=== PATIENT | female | born 1945 | race Caucasian/White ===

== ENCOUNTER 2017-02-15 12:08 | Inpatient (IN) | payer OTHER ==
[~2017-02-15] VITALS: Ht 165.1 cm; Wt 65.8 kg
--- NOTE | ~2017-02-15 | EKG ---
[facility] [employer] [place] [address] ELECTROCARDIOGRAM REPORT Name: BHAVYA BRANHAM Room #: 200-I ADM IN M.R.#: [id number] Admission: 02/15/17 Attend Phys: Perico Duran DO Discharge: Date of : 47 Report #: [id number] THIS REPORT FOR: //name// [facility] Test Date: 2017-02-16 Test Time: 10:41:44 Pat Name: BHAVYA BRANHAM Department: Room: 200 I Gender: F Door Closer: Arleen VIGIL : 1945 Requested By: Daron Dugan Order Number: [id number] MD: Terrence Deleon Measurements Intervals [place] Rate: 104 P: 89 VT: 179 QRS: -62 QRSD: 111 T: 117 QT: 365 QTc: 481 Interpretive Statements Sinus tachycardia Ventricular premature complex LAD, consider left anterior fascicular block Probable anterior infarct, age indeterminate Lateral leads are also involved Compared to ECG 08/24/2016 14:34:37 Ventricular premature complex(es) now present Myocardial infarct finding now present Sinus rhythm no longer present Left bundle-branch block no longer present Left ventricular hypertrophy no longer present Q waves no longer present Electronically Signed On 02-16-2017 20:55:15 CDT by Terrence Deleon [email or web address] <ELECTRONICALLY SIGNED> By: Terrence Deleon MD 02/16/172054 40 40 Terrence Deleon MD /EPI
--- NOTE | ~2017-02-15 | CATHLAB ---
[facility] [place] [address] INVASIVE PROCEDURE REPORT Name: BHAVYA BRANHAM Room #: 200-I [facility] IN [facility]#: [id number] Admission: 02/15/17 Attend Phys: Perico Duran, Discharge: 02/17/17 Date of : 47 Date of Service: 02/17/17 0919 Report #: [id number] THIS REPORT FOR: //name// CC: Perico Graham CARDIAC CATHETERIZATION REPORT DATE OF SERVICE: 02/17/2017. INDICATION: Pulmonary hypertension, congestive heart failure. INDICATIONS: Full risks, benefits and alternatives of the right and left heart cardiac catheterization were explained to the patient. All questions were answered. DESCRIPTION OF PROCEDURE: Informed consent was obtained. The right groin area was prepped and draped in a sterile manner. Lidocaine was given subcutaneously. A 4-Jamaican sheath was inserted into the right femoral artery and a 7-Jamaican sheath was inserted into the right femoral vein, both via modified Seldinger technique. A Juma Terry catheter was introduced in the right femoral vein and passed retrograde up into the pulmonary artery. The mean right atrial pressure is . Next, the artery is a 60/12. Next, the mean capillary wedge pressure is 29, the PA pressure is approximately 60/28. The pulmonary artery saturation is approximately 59.6. The systemic arterial saturation is 90.5. A significant left to right shunt is not detected. The cardiac output via the Yadira method is 3.33. CORONARY ANATOMY: The left main artery is a large caliber vessel, with no flow-limiting lesions. The LAD is a moderate sized caliber vessel, travelling down the anterior wall. There are 2 moderate size diagonal arteries. There were no flow-limiting lesions in the LAD. The left circumflex artery is a small caliber vessel, with no flow-limiting lesions. The RCA is a dominant vessel supplying a PDA and several posterolateral branches. There were no flow-limiting lesions in the RCA [facility] [address] [place] [address] INVASIVE PROCEDURE REPORT Name: BHAVYA BRANHAM Room #: 200-I [facility] IN M.R.#: [id number] Admission: 02/15/17 Attend Phys: Perico Duran, Discharge: 02/17/17 Date of : 47 Date of Service: 02/17/17918 Report #: [id number] A left ventriculogram was performed revealing probable mild global LV dysfunction, EF around 45%. The LVEDP is approximately 24 mmHg. There is no gradient across the outflow tract. IMPRESSION: 1. Angiographically normal coronary arteries. 2. Pulmonary hypertension. 3. Mild global left ventricular dysfunction. 4. No evidence for significant left to right shunt. <ELECTRONICALLY SIGNED> By: Daron Dugan MD 02/21/17 0743 0919 1307 MD rahul Youngblood
--- NOTE | ~2017-02-15 | 2DMMODE ---
[facility] [address] [place] [address] 2 D/M-MODE ECHOCARDIOGRAM Name: BHAVYA BRANHAM Room #: 200-I ADM IN .R.#: [id number] Admission: 02/15/17 Attend Phys: Sukumar Pena Discharge: Date of : 47 Date of Service: 02/15/17 1601 Report #: [id number] THIS REPORT FOR: //name// APPROVED REPORT Study performed: 02/15/2017 14:06:21 EXAM: Comprehensive 2D, Doppler, and color-flow Echocardiogram Patient Location: Bedside Room #: 200 Status: routine Other Information Study Quality: Good Indications Elevated Troponin Hx: Afib with ablation and cardioversion. 2D Dimensions RVDd: 43.03 mm LVEF(%): 39.64 (>50%) IVSd: 11.74 (7-11mm) LVOT Diam: 19.93 (18-24mm) LVDd: 42.32 mm PWd: 11.92 (7-11mm) Ascending Ao: 30.67 (22-36mm) LVDs: 34.25 (25-40mm) Aortic Root: 30.48 mm Dan's LVEF: 39.64 % Volumes Left Atrial Volume (Systole) Single Plane 4CH: 84.34 mL Single Plane 2CH: 76.01 mL LA ESV Index: 50.00 mL/m2 Aortic Valve AoV Peak Kirt.: 1.05 m/s AO Peak Gr.: 4.37 mmHg LVOT Max P.16 mmHg LVOT Max V: 0.73 m/s SILVA Vmax: 2.19 cm2 Mitral Valve E/A Ratio: 2.9 MV Decel. Time: 199.94 ms MV E Max Kirt.: 0.83 m/s MV A Kirt.: 0.29 m/s IVRT: 50.75 ms [facility] [place] [address] 2 D/M-MODE ECHOCARDIOGRAM [facility] #: 200-I ADM IN ..#: [id number] Admission: 02/15/17 Attend Phys: Sukumar Pena Discharge: Date of : 47 Date of Service: 02/15/17 1601 Report #: [id number] Pulmonary Valve PV Peak Kirt.: 0.83 m/s PV Peak Gr.: 2.75 mmHg Tricuspid Valve TR Peak Kirt.: 4.16 m/s RAP Estimate: 10.00 mmHg TR Peak Gr.: 69.18 mmHg RVSP: 79.00 mmHg Left Ventricle The left ventricle is normal size. Borderline concentric left ventricular hypertrophy. Left ventricular systolic function is mildly decreased. LVEF is 45-50%. This study is not technically sufficient to allow evaluation of the LV diastolic function. Right Ventricle Right ventricle is mildly dilated. Right ventricle is hypokinetic. Atria Left atrium is severely dilated. A PFO is noted with color doppler. Right atrium is moderately dilated. Aortic Valve Aortic valve leaflets are mildly thickened and calcified. Trace aortic regurgitation. There is no aortic valvular stenosis. Mitral Valve The mitral valve is normal in structure. Moderate mitral regurgitation with an eccentric jet. Tricuspid Valve The tricuspid valve is normal in structure. There is moderate tricuspid regurgitation. The right atrial pressure is estimated at 10 mmHg. There is severe pulmonary hypertension. Estimated PAP is 79mmHg. Pulmonic Valve The pulmonary valve is normal in structure. Mild to moderate pulmonic regurgitation. Great Vessels The aortic root is normal in size. The ascending aorta is normal in size. IVC is dilated and collapses <50% with inspiration. Pericardium [address] [address] 2 D/M-MODE ECHOCARDIOGRAM Name: BHAVYA BRANHAM Room #: 200-I ADM IN .R.#: [id number] Admission: 02/15/17 Attend Phys: Sukumar Pena Discharge: Date of : 47 Date of Service: 02/15/17 1601 Report #: [id number] There is no pericardial effusion. <Conclusion> The left ventricle is normal size. Borderline concentric left ventricular hypertrophy. Right ventricle is mildly dilated. Left atrium is severely dilated. Right atrium is moderately dilated. Aortic valve leaflets are mildly thickened and calcified. Trace aortic regurgitation. The mitral valve is normal in structure. Moderate mitral regurgitation with an eccentric jet. The tricuspid valve is normal in structure. There is moderate tricuspid regurgitation. The right atrial pressure is estimated at 10 mmHg. There is severe pulmonary hypertension. Estimated PAP is 79mmHg. The pulmonary valve is normal in structure. Mild to moderate pulmonic regurgitation. <ELECTRONICALLY SIGNED> By: Teofilo Valle MD 02/15/17 1601 1601 160 Teofilo Valle MD /INF
--- NOTE | ~2017-02-15 | HC ---
[facility] [place] [address] CONSULTATION Name: BHAVYA BRANHAM Room #: 200-I [facility] IN M.R.#: [id number] Admission: 02/15/17 Attend Phys: Perico Duran DO Discharge: 02/17/17 Date of : 47 Report #: [id number] THIS REPORT FOR: //name// CC: Perico Felton REASON FOR CONSULTATION: Shortness of breath and swelling. HISTORY OF PRESENT ILLNESS: The patient is a 72-year-old female who I follow as an outpatient. She has a history of paroxysmal atrial fibrillation and I performed an AFib ablation on her back on 07/15/2016. At that time, all her veins were successfully isolated. Since then, I have stopped her antiarrhythmic drugs and she has had no clinical recurrence of atrial fibrillation based on recent cardiac monitoring. Echo back in December of 2014 showed an EF of 60-65% and a nuclear stress test in August 2015 showed normal EF with no ischemia. She also has history of obstructive sleep apnea, hypothyroidism, and is intolerant of Multaq and flecainide. I recently set her up to see pulmonary because she was having some shortness of breath and cough which they could not figure out. She has seen Dr. Perez who has put her on some inhalers and he described her as having some restrictive findings on her PFTs. Apparently, she reports that she has been having worsening exertional dyspnea for the past several months. She reports that she could not walk from her car to her office without having to stop to catch her breath. She has noted some pounding in her neck sensation as well. She denies any chest pain or chest tightness. She denies any PND or orthopnea. She has had some increased lower extremity swelling over the past couple of weeks. REVIEW OF SYSTEMS: GENERAL: No fevers or chills. HEENT: No blurred vision. CARDIOVASCULAR: As above. PULMONARY: She has this chronic cough and has been evaluated by the pulmonary service as an outpatient. GASTROINTESTINAL: No nausea or vomiting. GENITOURINARY: No dysuria. MUSCULOSKELETAL: No myalgias or arthralgias. ENDOCRINE: No heat or cold intolerance. PAST MEDICAL HISTORY: Please see HPI for my past medical history. FAMILY HISTORY: Noncontributory. SOCIAL HISTORY: No smoking. ALLERGIES: INCLUDE SULFA. HOME MEDICATIONS: Include Xarelto 20, calcium, Protonix, and Synthroid. [facility] [address] [place] [address] CONSULTATION Name: BHAVYA BRANHAM Room #: 200-I [facility] IN ..#: [id number] Admission: 02/15/17 Attend Phys: Perico Duran DO Discharge: 02/17/17 Date of : 47 Report #: [id number] PHYSICAL EXAMINATION: VITAL SIGNS: Temperature is 36.7, pulse 94, respiration 16, blood pressure 118/72, sats are 95%. GENERAL: She is in no acute distress, alert and oriented x 3. HEENT: Oropharynx is clear. Sclerae are anicteric. NECK: Supple with no thyromegaly or carotid bruits. HEART: Regular rate and rhythm with no audible murmurs. She does have elevated JVD with prominent V waves. LUNGS: Clear to auscultation bilaterally. ABDOMEN: Soft, nontender, nondistended with no hepatosplenomegaly. EXTREMITIES: There is no clubbing, cyanosis and she has 1 to 2+ lower extremity edema. NEUROLOGICAL: Cranial nerves 2-12 are intact. EKG today shows no ischemic changes. LABORATORY DATA: Her CBC shows white count of 7, hemoglobin 13, platelets 228. Creatinine 0.9, potassium 4.2. ProBNP 3606. Troponin was 0.06. Her transthoracic echo shows an EF of 45-50%, which is decreased from her echo in August when she was admitted with possible viral illness. Her right ventricle is mildly dilated with some right ventricular hypokinesis. Her left atrium is severely dilated. There is PFO noted. Right atrium is moderately dilated. His PFO is likely from my AFib ablation. There is new onset severe pulmonary hypertension with PA pressures of 80. ASSESSMENT: 1. Systolic heart failure, EF 45-50%, acute on chronic. 2. Severe pulmonary hypertension. 3. Restrictive lung disease. 4. Obstructive sleep apnea. 5. Hypothyroidism. 6. Paroxysmal atrial fibrillation, status post ablation. In summary, the patient is a 71-year-old presenting with new onset heart failure with mild decrease in her left ventricular systolic function. There is also evidence of newly diagnosed severe pulmonary hypertension, which is different than her last echo in August. The etiology of this is unclear. We will check serial troponins. Thus far, there are no ischemic changes. In terms of her severe pulmonary hypertension, the etiology of this is unclear. I would like the pulmonary service to get involved. She has been on chronic anticoagulation for her atrial fibrillation, so I doubt pulmonary embolus. However, I will have the pulmonary service decide if they think a CT PE protocol is warranted or a V/Q scan. I will start some IV diuretics. I will hold her anticoagulation as [facility] [address] [place] [address] CONSULTATION Name: BHAVYA BRANHAM Room #: 200-I DIS IN M.R.#: [id number] Admission: 02/15/17 Attend Phys: Perico Duran, DO Discharge: 02/17/17 Date of : 47 Report #: [id number] we may consider performing a right and left heart cath during this hospitalization. We will continue to follow. <ELECTRONICALLY SIGNED> By: Terrence Deleon MD 02/20/17 0829 1801 2109 Terrence Deleon MD /nt
--- NOTE | ~2017-02-15 | HC ---
[facility] [place] [address] CONSULTATION Name: BHAVYA BRANHAM Room #: 200-I [facility] IN M.R.#: [id number] Admission: 02/15/17 Attend Phys: Perico Duran DO Discharge: 02/17/17 Date of : 47 Report #: [id number] THIS REPORT FOR: //name// CC: Perico Perez MD DATE OF SERVICE: 02/16/2017 DATE OF SERVICE: 02/16/2017. REFERRING PROVIDER: Dr. Terrence Deleon. REASON FOR CONSULTATION: Pulmonary hypertension. CHIEF COMPLAINT: Dyspnea. HISTORY OF PRESENT ILLNESS: Our group was asked to see the patient in consultation while hospitalized at [facility], a pleasant 72-year-old woman who underwent radiofrequency ablation for atrial fibrillation, I believe in 06/2016, has noted some increasing fatigue, shortness of breath and nonproductive cough since that time. Denies any fevers, chills or sweats, been seen and followed by one of our group, Dr. Derick Perez, for this cough and had had some mild restriction, but nothing for airflow obstruction on pulmonary function tests, we gave her a trial Breo inhaler for your cough as well as undergoing further evaluation for acid reflux and on a reflux therapy; however, the patient continued to have increasing shortness of breath noted pulsations in her neck as well as has been noted to have some hypoxemia in the past on exam. She had also being noticing over the last week slight increasing lower extremity edema, with these findings went to the Emergency Department and presents here for further evaluation, yesterday evening underwent a CT scan of the chest PE protocol despite being anticoagulated, prior workup by Dr. Perez had shown again some mild restriction in total lung mass and moderate reduction in DLCO, correlated with reduced lung volumes. There is no apparent CT that was done to further evaluate. Currently, she has been having as mentioned, increasing symptoms, seems to respond to diuretics overnight a CT scan of the chest PE protocol shows no PE. There is some small pleural effusions noted and unclear to any significant parenchymal lung disease, does not appear to be on my initial evaluation. A CT abdomen and pelvis report is pending at this time. ALLERGIES: SULFA. PAST MEDICAL HISTORY: 1. History of atrial fibrillation with ablation in 06/2016. [facility] [address] [facility] [place] [address] CONSULTATION Name: BHAVYA BRANHAM Room #: 200-I [facility] IN M.R.#: [id number] Admission: 02/15/17 Attend Phys: Perico Duran DO Discharge: 02/17/17 Date of : 47 Report #: [id number] 2. History of recurrent cardioversion. 3. History of gastroesophageal reflux disease. 4. Chronic cough. 5. Obstructive sleep apnea, on nocturnal CPAP. 6. Hypothyroidism. OUTPATIENT MEDICATIONS: Include temazepam, alprazolam, Synthroid, Protonix, multivitamin, calcium, Xarelto. SOCIAL HISTORY: The patient is a never smoker, no alcohol consumption, worked as a financial secretary, no significant environmental exposures. FAMILY HISTORY: Significant for unknown cancer in the family as well as history of coronary artery disease. Father chronic obstructive pulmonary disease. Mother with pancreatic cancer. REVIEW OF SYSTEMS: GENERAL: Fatigue, no fevers, chills or sweats. ENT: No upper respiratory congestion, rhinorrhea or dysphagia. CARDIOVASCULAR: palpitations as described with neck pulsations. GASTROINTESTINAL: History of reflux recently evaluated. GENITOURINARY: No dysuria, no frequency. INTEGUMENT: Denies any rash. HEENT: No upper respiratory congestion, rhinorrhea or dysphagia. Some persistent cough. CARDIOVASCULAR: As described. GASTROINTESTINAL: No nausea, vomiting, diarrhea, constipation or abdominal pain. History of reflux. GENITOURINARY: No dysuria or frequency. INTEGUMENT: Denies any rash. MUSCULOSKELETAL: Some increased lower extremity edema and some ongoing arthritis. PHYSICAL EXAMINATION: VITAL SIGNS: Afebrile, pulse 90, respiratory rate 14, blood pressure , oxygen saturation 94% on room air. GENERAL: This is a pleasant aged woman in no distress. HEENT: Clear oropharynx. NECK: Supple, no lymphadenopathy. LUNGS: Minimal basilar inspiratory crackles. No wheezes. CARDIOVASCULAR: Heart was tachycardic, regular. No murmurs noted. ABDOMEN: Soft, nontender, no masses. EXTREMITIES: With only trace edema. LABORATORY DATA: CBC normal. Chemistry profile normal except for mildly elevated glucose. [address] [address] CONSULTATION Name: BHAVYA BRANHAM Room #: 200-I [facility] IN ..#: [id number] Admission: 02/15/17 Attend Phys: Perico Duran DO Discharge: 02/17/17 Date of : 47 Report #: [id number] IMPRESSION: 1. Pulmonary hypertension. 2. Patent foramen ovale. 3. Markedly enlarged left atrium, significant concern, over all for underlying post-ablation problems should be considered. 4. Cough, doubt this is responsive to her Breo inhaler, when hold any inhaled therapy at this time. There is nothing for obstructive lung disease. SUGGESTIONS: 1. Await right and left heart catheterization. 2. Diuresis. 3. Check connective tissue screen. 4. Discussed further with cardiology. Thank you for requesting our suggestions. <ELECTRONICALLY SIGNED> By: Johnathan Roland MD 02/23/17 1133 1115 1351 Johnathan Roland MD /nt
[~2017-02-15 12:08] MED LIST: CALCIUM; CALCIUM 500 +1 EAC5 PO; CARTIA XT120 M1 PO; COUMADIN 4 MG TA4 M1 PO; FLECAINIDE ACET50 M1 PO; LEVOTHYROXIN0.088 MG PO; LIPITOR 20 MG T20 M1 PO; MECLIZINE HCL12.5 MG PO; MULTIVITAMIN; PRADAXA150 MG PO; PROTONIX40 M1 PO; RESTORIL15 MG PO; UNICOMPLEX M TA1 TA1 PO; XANAX 0.25 MG0.25 MG PO; XARELTO20 MG PO
[2017-02-15 14:11] VITALS: BP 118/72
[2017-02-15] MEDS ORDERED: BREO ELLIPTA 11 EACH PO (14:35)
[2017-02-15] MEDS ORDERED: OMEPRAZOLE40 MG PO (14:35)
[2017-02-15] MEDS ORDERED: CARAFATE 1 GM TA1 G1 PO (14:36)
[2017-02-15 18:01] LABS: CHOLESTEROL 158 mg/dL (<200); HDL CHOLESTEROL 47 mg/dL (>40); LDL CHOLESTEROL 93 mg/dL (<100); TC:HDL 3.4 Ratio (Not establshd); TRIGLYCERIDE 91 mg/dL (<150); VLDL 18 mg/dL (<40)
[2017-02-15 20:50] VITALS: BP 98/55
[2017-02-15 23:33] VITALS: BP 115/63
[2017-02-15 23:43] VITALS: BP 74/42
[2017-02-16 02:51] VITALS: BP 90/42
[2017-02-16 07:59] VITALS: BP 97/54
[2017-02-16 10:04] LABS: HEMOGLOBIN 13.8 gm/dL (12.0-15.0); MCH 32.2 pg (26.0-34.0); MCHC 33.5 g/dL (28.0-37.0); MCV 96.1 fL (80.0-100.0); RBC 4.27 mil/uL (4.20-5.00); RDW 14.3 % (10.5-14.5)
[2017-02-16 10:22] LABS: CALCIUM 9.4 mg/dL (8.5-10.1); CREATININE 0.9 mg/dL (0.6-1.0); POTASSIUM 3.6 mmol/L (3.5-5.1); TROPONIN-I 0.08 ng/mL (<0.04-0.07)
[2017-02-16 11:53] VITALS: BP 96/47
[2017-02-16 15:45] VITALS: BP 90/53
[2017-02-16 19:28] VITALS: BP 102/61
[2017-02-17] VITALS (13 sets, daily range): BP systolic 90–108; BP diastolic 45–61
[2017-02-17 04:09] LABS: CALCIUM 8.6 mg/dL (8.5-10.1); CREATININE 0.8 mg/dL (0.6-1.0); POTASSIUM 3.4 mmol/L (3.5-5.1)
[2017-02-17 04:47] LABS: APTT 27.9 Seconds (24.5-32.8); INR 1.2; PROTIME 12.3 Seconds (9.3-11.4)
[2017-02-17 04:52] LABS: HEMATOCRIT 36.4 % (37.0-47.0); HEMOGLOBIN 12.2 gm/dL (12.0-15.0); MCH 32.4 pg (26.0-34.0); MCHC 33.4 g/dL (28.0-37.0); MCV 96.8 fL (80.0-100.0); RBC 3.76 mil/uL (4.20-5.00); RDW 14.3 % (10.5-14.5); WBC 5.4 thou/uL (4.0-11.0)
[2017-02-17 08:38] LABS: ABG SAMPLE TYPE VENOUS; BE(vivo) -0.3 mmol/L (-2 to +3); HCO3 24.2 mmol/L (22.0-26.0); LACTATE 1.02 mmol/L (0.5-2.0); PCO2 39.1 mmHg (35.0-45.0); pH 7.409 (7.360-7.450); sO2 63.6 % (92.0-98.0); tCO2 25.4 mmol/L (24.0-30.0)
[2017-02-17 08:39] LABS: ABG SAMPLE TYPE ARTERIAL; BE(vivo) 1.4 mmol/L (-2 to +3); HCO3 25.6 mmol/L (22.0-26.0); LACTATE 1.21 mmol/L (0.5-2.0); O2(CT) 16.9 mL/dL (15.0-23.0); O2Hb 90.5 % (92.0-98.0); PCO2 39.1 mmHg (35.0-45.0); PO2 62.2 mmHg (80.0-100.0); pH 7.434 (7.360-7.450); sO2 92.6 % (92.0-98.0); tCO2 26.8 mmol/L (24.0-30.0)
[2017-02-17 08:39] LABS: O2Hb 59.6 % (92.0-98.0); PO2 32.7 mmHg (80.0-100.0)
[2017-02-17 08:40] LABS: ABG COMMENT PULMONARY ART; STICK SITE PA
[2017-02-17] MEDS ORDERED: LASIX 20 MG TAB20 MG PO (10:35)
[2017-02-17] MEDS ORDERED: POTASSIUM20 PO (15:24)
[2017-02-20 16:08] LABS: c-ANCA <1:20 titer (Neg:<1:20); p-ANCA <1:20 titer (Neg:<1:20)
== END 2017-02-17 15:25 | disposition home or self-care (01) | DRG 287 ==
LOC: 2N 12:08
PROVIDERS: Family Medicine; Internal Medicine Cardiovascular Disease; Internal Medicine Pulmonary Disease
PROC: B2151ZZ Fluoroscopy of Left Heart using Low Osmolar Contrast (ICD-10-PCS; principal; 2017-02-17)
PROC: B2111ZZ Fluoroscopy of Multiple Coronary Arteries using Low Osmolar Contrast (ICD-10-PCS; principal; 2017-02-17)
PROC: 4A023N8 Measurement of Cardiac Sampling and Pressure, Bilateral, Percutaneous Approach (ICD-10-PCS; principal; 2017-02-17)
DX: I50.23 Acute on chronic systolic (congestive) heart failure (principal); Q21.1 Atrial septal defect; I27.2 Other secondary pulmonary hypertension; I48.0 Paroxysmal atrial fibrillation; J98.4 Other disorders of lung; G47.33 Obstructive sleep apnea (adult) (pediatric); E03.9 Hypothyroidism, unspecified; I25.10 Atherosclerotic heart disease of native coronary artery without angina pectoris; K21.9 Gastro-esophageal reflux disease without esophagitis; Z88.2 Allergy status to sulfonamides; Z79.899 Other long term (current) drug therapy; Z82.49 Family history of ischemic heart disease and other diseases of the circulatory system; Z80.0 Family history of malignant neoplasm of digestive organs; Z83.6 Family history of other diseases of the respiratory system; Z79.01 Long term (current) use of anticoagulants; Z90.710 Acquired absence of both cervix and uterus
CPT/HCPCS: 10081